=== PATIENT | female | born 1990 | race Caucasian/White ===

== ENCOUNTER 2022-04-17 17:58 | Emergency (ER) | payer OTHER, SELFPAY ==
[2022-04-17 19:12] VITALS: BP 187/100; PULSE 68; RESP 17; TEMP 36.8; O2SAT 100; BMI 35.6
[2022-04-17] MEDS: Ibuprofen 600 MG TABLET PO (19:18)
[2022-04-17 20:00] VITALS: BP 144/102; PULSE 75; RESP 18; O2SAT 99
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
[2022-04-17] MEDS: Cyclobenzaprine HCl 10 MG TABLET PO (21:21)
--- NOTE | 2022-04-17 21:26 | PC.NURSE ---
medicated per provider order.
== END 2022-04-17 21:56 | disposition home or self-care (01) ==
PROVIDERS: Emergency Provider Emergency Medicine
DX: S39.012A Strain of muscle, fascia and tendon of lower back, initial encounter (principal); S63.502A Unspecified sprain of left wrist, initial encounter; V43.52XA Car driver injured in collision with other type car in traffic accident, initial encounter; Y93.9 Activity, unspecified; Y92.410 Unspecified street and highway as the place of occurrence of the external cause; Y99.9 Unspecified external cause status
CPT/HCPCS: 99283; 99284